=== PATIENT | male | born 1945 | race African-American/Black ===

== ENCOUNTER 2022-06-13 14:15 | Emergency (ER) | payer MEDICARE, MEDICAID ==
[~2022-06-13] VITALS: Ht 162.6 cm; Wt 75.0 kg
[2022-06-13 21:44] VITALS: BP 129/72
== END 2022-06-13 21:53 | disposition home or self-care (01) ==
LOC: ER 14:15
DX: S01.81XA Laceration without foreign body of other part of head, initial encounter (principal); W01.0XXA Fall on same level from slipping, tripping and stumbling without subsequent striking against object, initial encounter; Y93.89 Activity, other specified; Y92.89 Other specified places as the place of occurrence of the external cause; Y99.8 Other external cause status; K21.9 Gastro-esophageal reflux disease without esophagitis; I10 Essential (primary) hypertension
CPT/HCPCS: 99281